=== PATIENT | male | born 1980 | race Caucasian/White ===

== ENCOUNTER 2017-01-31 14:33 | Emergency (ER) | payer OTHER ==
[~2017-01-31] VITALS: Ht 172.7 cm; Wt 90.0 kg
[2017-01-31 14:34] VITALS: Ht 172.7 cm; Wt 90.0 kg
[2017-01-31] MEDS ORDERED: SOD CHLORIDE 0.9% 1,000 ML IV STA (15:36)
[2017-01-31] MEDS ORDERED: ONDANSETRON 4 MG INJ IV STA (15:36)
[2017-01-31] MEDS ORDERED: LORAZEPAM 2 MG INJ IV ONE (16:00)
[2017-01-31 16:22] LABS: BASOPHIL # 0.1 10^3/ul (0.0-0.1); BASOPHILS % 0.9 % (0.0-2.0); HEMOGLOBIN 16.6 g/dl (14.0-18.0); LYMPHOCYTES # 3.5 10^3/ul (0.8-2.9); LYMPHOCYTES % 43.4 % (15.0-51.0); MEAN CORPUSCULAR HEMOGLOBIN 30.5 pg (29.0-33.0); MEAN CORPUSCULAR HGB CONC 36.1 g/dl (32.0-37.0); MEAN CORPUSCULAR VOLUME 84.6 fl (82.0-101.0); MEAN PLATELET VOLUME 11.6 fl (7.4-10.4); MONOCYTE # 0.5 10^3/ul (0.3-0.9); MONOCYTES % 6.2 % (0.0-11.0); NEUTROPHILS % 49.3 % (39.0-77.0); PLATELET COUNT 161 10^3/UL (140-415); RED BLOOD COUNT 5.44 10^6/ul (4.70-6.10); RED CELL DISTRIBUTION WIDTH 12.4 % (11.5-14.5); WHITE BLOOD COUNT 8.1 10^3/ul (4.8-10.8)
[2017-01-31 16:25] LABS: ADD UMIC YES; UR ASCORBIC ACID NEGATIVE (NEGATIVE); UR BILIRUBIN (Dip) NEGATIVE (NEGATIVE); UR BLOOD (Dip) 1+ mg/dL (NEGATIVE); UR CLARITY CLEAR (CLEAR); UR COLOR YELLOW (YELLOW); UR GLUCOSE (Dip) NEGATIVE (NEGATIVE); UR KETONES (Dip) NEGATIVE (NEGATIVE); UR LEUKOCYTE ESTERASE (Dip) NEGATIVE Leu/ul (NEGATIVE); UR MUCUS FEW /HPF (NONE SEEN); UR NITRITE (Dip) NEGATIVE (NEGATIVE); UR RBC 0 /HPF (0-5); UR SPECIFIC GRAVITY (Dip) 1.023 (1.003-1.030); UR TOTAL PROTEIN (Dip) 3+ mg/dl (NEGATIVE); UR UROBILINOGEN (Dip) 1+ mg/dL (NEGATIVE)
[2017-01-31] MEDS ORDERED: FAMOTIDINE 20 MG INJ IV ONE (16:30)
[2017-01-31 16:39] LABS: ALBUMIN 4.1 g/dl (3.3-4.9); ALBUMIN/GLOBULIN RATIO 1.05; BILIRUBIN,INDIRECT 0.3 mg/dl (0-1.1); BILIRUBIN,TOTAL 0.3 mg/dl (0.2-1.3); CALCIUM 8.6 mg/dl (8.4-10.2); CREATININE 0.72 mg/dl (0.61-1.24); POTASSIUM 3.3 mmol/L (3.5-5.1)
--- NOTE | 2017-01-31 17:28 | RADRPT ---
PROCEDURE: US Abdomen (right upper quadrant). CLINICAL INDICATION: Epigastric pain and right upper quadrant pain TECHNIQUE: Multiple real-time longitudinal and transverse images of the right upper quadrant of th e abdomen were acquired utilizing a curved array transducer. Images were reviewed on a high-resoluti on PACS workstation. COMPARISON: None FINDINGS: The visualized portions of the pancreas are suboptimal in evaluation. The right lobe of the liver measures 24.9 cm. There is diffuse increased echogenicity of the liver w ith a coarse echotexture. No definite liver masses are visualized. The main portal vein is patent a nd in the appropriate direction. There are no gallstones visualized within the gallbladder. There is no gallbladder wall thickening, pericholecystic fluid, or sonographic Reina's sign. The common bile duct measures 3.3 mm in diameter, within normal limits. There is no intrahepatic bi liary ductal dilatation. The right kidney measures 9.8 x 4.1 x 6.9 cm. The parenchymal echogenicity and thickness appear wit hin normal range. No focal lesions are visualized. There is no hydronephrosis. There is no ascites visualized in the right abdomen. RPTAT: EE IMPRESSION: Diffuse fatty infiltration of the liver with marked hepatomegaly. .Kiley Quintana MD, Date Time Electronically viewed and signed by .Kiley Quintana MD, MD on 01/31/2017 17:33 .T/
[2017-01-31] MEDS ORDERED: ONDA4TAB14 PO (17:57)
[2017-01-31 18:11] VITALS: BP 115/73; PULSE 79; RESP 14; TEMP 98.6
--- NOTE | 2017-01-31 18:14 | ERD ---
ER Documentation Chief Complaint Date/Time DATE: 01/31/17 TIME: 18:04 Chief Complaint pt bib family with c/o vomiting for 3 days , ETOH use HPI Patient is a 36-year-old male with a history of alcoholism who presents emergency department for concerns of vomiting 3 days. Patient is brought in by his stepfather. Patient state father states that patient has been drinking alcohol for the last week after having some relationship problems. Patient reports nausea and vomiting throughout the day. Patient states he is unable to tolerate p.o. fluids secondary to ongoing vomiting. Patient does report some epigastric pain. Patient denies any radiation of the pain to his lower abdomen. Patient states he has been drinking approximately 4-5 shots of vodka per day as well as 5-6 beers per day. Denies any homicidal and suicidal ideations at this time. Patient denies any headache, blurry vision, chest pain , shortness of breath or LOC. ROS All systems reviewed and are negative except as per history of present illness. Medications Home Meds Active Scripts Ondansetron (Ondansetron Odt) 4 Mg Tab.rapdis, 4 MG PO Q6H Y for NAUSEA AND/OR VOMITING, #10 TAB Prov:LAMIN CASTANO PA-C 01/31/17 Allergies Allergies: Coded Allergies: No Known Allergy (Unverified , 07/13/14) PMhx/Soc Medical and Surgical Hx: pt denies Medical Hx, pt denies Surgical Hx History of Surgery: No Hx Neurological Disorder: No Hx Respiratory Disorders: No Hx Cardiac Disorders: No Hx Psychiatric Problems: No Hx Miscellaneous Medical Probl: No Hx Alcohol Use: Yes (ETOH) Hx Substance Use: No Hx Tobacco Use: No Smoking Status: Never smoker Physical Exam Vitals Vital Signs Date Time Temp Pulse Resp B/P Pulse Ox O2 Delivery O2 Flow Rate FiO2 01/31/17 14:34 98.3 102 20 144/90 98 Physical Exam GENERAL: Well-developed, well-nourished male. Appears anxious. HEAD: Normocephalic, atraumatic. EYES: Pupils are equally reactive bilaterally. EOMs grossly intact. No conjunctival erythema. ENT: Moist mucous membranes. No uvula deviation. No kissing tonsils. NECK: Supple. No meningismus. Normal range of motion of the neck. LUNG: Clear to auscultation bilaterally. No rhonchi, wheezing, rales or coarse breath sounds. HEART: Regular rate and rhythm. No murmurs, rubs or gallops. ABDOMEN: Soft nondistended. Tender to palpation in the epigastric region.. Positive bowel sounds in all four quadrants. No rebound tenderness, no guarding. (-) McBurney's point tenderness. No CVA tenderness. BACK: No midline tenderness. EXTREMITIES: Equal pulses bilaterally. No peripheral clubbing, cyanosis or edema. No unilateral leg swelling. NEUROLOGIC: No felirium tremens. Alert and oriented x 3. Moving all four extremities without any difficulty. Normal speech. Steady gait. SKIN: Normal color. Warm and dry. No rashes or lesions. Result Diagram: 01/31/17 1558 01/31/17 1558 Results 24 hrs Laboratory Tests Test 01/31/17 15:50 01/31/17 15:58 Urine Color YELLOW Urine Clarity CLEAR Urine pH 6.0 Urine Specific [place] 1.023 Urine Ketones NEGATIVEmg/dL Urine Nitrite NEGATIVEmg/dL Urine Bilirubin NEGATIVEmg/dL Urine Urobilinogen 1+mg/dL Urine Leukocyte Esterase NEGATIVELeu/ul Urine Microscopic RBC 0/HPF Urine Microscopic WBC 1/HPF Urine Mucus FEW/HPF Urine Hemoglobin 1+mg/dL Urine Glucose NEGATIVEmg/dL Urine Total Protein 3+mg/dl White Blood Count 8.110^3/ul Red Blood Count 5.4410^6/ul Hemoglobin 16.6g/dl Hematocrit 46.0% Mean Corpuscular Volume 84.6fl Mean Corpuscular Hemoglobin 30.5pg Mean Corpuscular Hemoglobin Concent 36.1g/dl Red Cell Distribution Width 12.4% Platelet Count 47713^3/UL Mean Platelet Volume 11.6fl Neutrophils % 49.3% Lymphocytes % 43.4% Monocytes % 6.2% Eosinophils % 0.0% Basophils % 0.9% Nucleated Red Blood Cells % 0.0/100WBC Neutrophils # (Manual) 4.010^3/ul Lymphocytes # 3.510^3/ul Monocytes # 0.510^3/ul Eosinophils # 0.010^3/ul Basophils # 0.110^3/ul Nucleated Red Blood Cells # 0.010^3/ul Sodium Level 136mmol/L Potassium Level 3.3mmol/L Chloride Level 96mmol/L Carbon Dioxide Level 23mmol/L Anion Gap 20 Blood Urea Nitrogen 13mg/dl Creatinine 0.72mg/dl Glucose Level 138mg/dl Calcium Level 8.6mg/dl Total Bilirubin 0.3mg/dl Direct Bilirubin 0.00mg/dl Indirect Bilirubin 0.3mg/dl Aspartate Amino Transf (AST/SGOT) 453IU/L Alanine Aminotransferase (ALT/SGPT) 251IU/L Alkaline Phosphatase 151IU/L Total Protein 8.0g/dl Albumin 4.1g/dl Globulin 3.90g/dl Albumin/Globulin Ratio 1.05 Lipase 360U/L Current Medications Medications (Trade) Dose Ordered Sig/Yanna Route PRN Reason Start Time Stop Time Status Last Admin Dose Admin Sodium Chloride (NS) 1,000 ml @ 1,000 mls/hr Q1H STAT IV 01/31/17 15:36 01/31/17 16:35 DC 01/31/17 15:56 Ondansetron HCl (Zofran Inj) 4 mg ONCE STAT IV 01/31/17 15:36 01/31/17 15:37 DC 01/31/17 15:56 Lorazepam (Ativan) 1 mg ONCE ONCE IV 01/31/17 16:00 01/31/17 16:01 DC 01/31/17 15:56 Famotidine (Pepcid Iv) 20 mg ONCE ONCE IV 01/31/17 16:30 01/31/17 16:31 DC 01/31/17 16:27 Procedures/MDM ED COURSE: The patient was stable throughout ED course. I kept the patient and/or family informed of laboratory and diagnostic imaging results throughout the ED course. DIAGNOSTIC IMAGING: Read by radiologist. DIAGNOSTIC IMAGING REPORT Patient: DAISY MONAHAN : 1980 Age: 36 Sex: M MR #: [id number] DOS: 01/31/17 1644 Ordering MD: LAMIN CASTANO PA-C Location: [facility] Room/Bed: PROCEDURE: US Abdomen (right upper quadrant). CLINICAL INDICATION: Epigastric pain and right upper quadrant pain TECHNIQUE: Multiple real-time longitudinal and transverse images of the right upper quadrant of the abdomen were acquired utilizing a curved array transducer. Images were reviewed on a high-resolution PACS workstation. COMPARISON: None FINDINGS: The visualized portions of the pancreas are suboptimal in evaluation. The right lobe of the liver measures 24.9 cm. There is diffuse increased echogenicity of the liver with a coarse echotexture. No definite liver masses are visualized. The main portal vein is patent and in the appropriate direction. There are no gallstones visualized within the gallbladder. There is no gallbladder wall thickening, pericholecystic fluid, or sonographic Reina's sign. The common bile duct measures 3.3 mm in diameter, within normal limits. There is no intrahepatic biliary ductal dilatation. The right kidney measures 9.8 x 4.1 x 6.9 cm. The parenchymal echogenicity and thickness appear within normal range. No focal lesions are visualized. There is no hydronephrosis. There is no ascites visualized in the right abdomen. RPTAT: EE IMPRESSION: Diffuse fatty infiltration of the liver with marked hepatomegaly. .Kiley Quintana MD, Date Time Electronically viewed and signed by .Kiley Quintana MD, on 01/31/2017 17: 33 .T/ CC: LAMIN CASTANO PA-C PROCEDURES: None. MEDICATIONS GIVEN: IV fluids, Zofran, Ativan IV, Pepcid Patient tolerated medication well with no adverse reactions. No Additional episodes of vomiting noted throughout the ED course. Patient reported improvement in symptoms. MEDICAL DECISION MAKING: Patient a 36-year-old male with a history of alcoholism presents emergency department for Epigastric pain, nausea and vomiting for the last 4 days. Patient is brought in by the patient's stepfather. Denies any homicidal suicidal ideations. Vital signs were reviewed. Patient is afebrile. Patient was not hypoxic. Patient was hemodynamically stable. CBC showed no evidence of systemic infection or severe anemia. CMP showed no evidence severe acidosis, alkalosis, renal failure. Patient had a potassium of 3.3, chloride of 96. Patient AST was noted to be 453, ALT of 251, alk phos of 151. Patient's lipase was noted to be elevated at 360 however it was not 3 times the normal limit. Suspicion for acute pancreatitis at this time. Gallbladder ultrasound was obtained. Ultrasound showed diffuse fatty infiltration of the liver with marked hepatomegaly. Elevation of liver enzymes and gallbladder ultrasound findings are likely due to alcohol abuse. Patient did report improvement in symptoms after receiving IV fluids, Zofran and IV Ativan. I explained to the patient as well as his stepfather at length that the patient should seek resources provided for help with his addiction to alcohol. Alcohol cessation advised. Father and patient are agreeable with this plan. This time, patient presentation is most consistent with alcohol abuse, epigastric pain, nausea and vomiting. Low concern for delirium tremens, acute coronary syndrome, AAA, mesenteric ischemia, lower lobe pneumonia, DKA, obstruction, bowel perforation, cholecystitis, choledocholithiasis, pancreatitis, splenic rupture, diverticulitis, UTI, pyelonephritis, nephrolithiasis, appendicitis. Unable to rule out PUD at this time. PRESCRIPTIONS: Zofran DISCHARGE: At this time, patient is stable for discharge and outpatient management. He was discharged with his stepfather appears to be supportive. Substance abuse resources provided. A copy of all imaging and blood work obtained was provided to the patient.. I have instructed the patient to follow-up with his/her primary care physician in 1-2 days. I have instructed the patient to promptly return to the ER at any time for any new or worsening symptoms including increased pain, nausea, vomiting, diarrhea, fever, weakness or LOC. The patient and/or family expressed understanding of and agreement with this plan. All questions were answered. Home care instructions were provided. Disclaimer: Inadvertent spelling and grammatical errors are likely due to EHR/ dictation software use and do not reflect on the overall quality of patient care. Also, please note that the electronic time recorded on this note does not necessarily reflect the actual time of the patient encounter. Departure Diagnosis: Primary Impression: Alcoholic intoxication Complication of substance-induced condition: with unspecified complication Qualified Code: F10.929 - Alcoholic intoxication with complication Additional Impression: Vomiting Vomiting type: unspecified Vomiting Intractability: unspecified Nausea presence: unspecified Qualified Code: R11.10 - Vomiting, intractability of vomiting not specified, presence of nausea not specified, unspecified vomiting type Patient Instructions: Alcohol Intoxication Referrals: [facility] YOU HAVE RECEIVED A MEDICAL SCREENING EXAM AND THE RESULTS INDICATE THAT YOU DO NOT HAVE A CONDITION THAT REQUIRES URGENT TREATMENT IN THE EMERGENCY DEPARTMENT. FURTHER EVALUATION AND TREATMENT OF YOUR CONDITION CAN WAIT UNTIL YOU ARE SEEN IN YOUR DOCTORS OFFICE WITHIN THE NEXT 1-2 DAYS. IT IS YOUR RESPONSIBILITY TO MAKE AN APPOINTMENT FOR FOLOW-UP CARE. IF YOU HAVE A PRIMARY DOCTOR --you should call your primary doctor and schedule an appointment IF YOU DO NOT HAVE A PRIMARY DOCTOR YOU CAN CALL OUR PHYSICIAN REFERRAL HOTLINE AT IF YOU CAN NOT AFFORD TO SEE A PHYSICIAN YOU CAN CHOSE FROM THE FOLLOWING [facility] [address] [facility] [address] [facility] [address] [facility] [address] [facility] [address] [facility] [facility] [address] [facility] [facility] YOU HAVE RECEIVED A MEDICAL SCREENING EXAM AND THE RESULTS INDICATE THAT YOU DO NOT HAVE A CONDITION THAT REQUIRES URGENT TREATMENT IN THE EMERGENCY DEPARTMENT. FURTHER EVALUATION AND TREATMENT OF YOUR CONDITION CAN WAIT UNTIL YOU ARE SEEN IN YOUR DOCTORS OFFICE WITHIN THE NEXT 1-2 DAYS. IT IS YOUR RESPONSIBILITY TO MAKE AN APPOINTMENT FOR FOLOW-UP CARE. IF YOU HAVE A PRIMARY DOCTOR --you should call your primary doctor and schedule and appointment IF YOU DO NOT HAVE A PRIMARY DOCTOR YOU CAN CALL OUR PHYSICIAN REFERRAL HOTLINE AT . IF YOU CAN NOT AFFORD TO SEE A PHYSICIAN YOU CAN CHOSE FROM THE FOLLOWING [facility] INSTITUTIONS: [facility] [address] [place] [address] [facility] [address] [place] [address] [facility] [address] [place] [address] Additional Instructions: Alcohol cessation advised. Substance abuse handouts provided. Call your primary care doctor TOMORROW for an appointment during the next 1-2 days.See the doctor sooner or return here if your condition worsens before your appointment time. LAMIN CASTANO PA-C Jan 31, 2017 18:14
== END 2017-01-31 18:15 | disposition home or self-care (01) ==
LOC: FTE 14:33
DX: F10.129 Alcohol abuse with intoxication, unspecified (principal)
CPT/HCPCS: 36415; 76705; 80053; 81001; 83690; 85025; 96374; 96375; 99285; J2060; J2405; J7030